=== PATIENT | female | born 1985 | race Caucasian/White ===

== ENCOUNTER 2016-10-01 20:28 | Emergency (ER) | payer OTHER ==
[~2016-10-01] VITALS: Ht 175.3 cm; Wt 99.8 kg
[~2016-10-01 20:28] MED LIST: CIPRO500 MG PO; IBUPROFEN 600600 M1 PO; IBUPROFEN 800800 M1 PO; LIORESAL 10 MG10 MG PO; NAPROSYN500 MG PO; NOHOMEMEDICATIONS
[2016-10-01] MEDS ORDERED: TESSALON PERLE100 MG PO (21:24)
[2016-10-01] MEDS ORDERED: VENTOLIN HFA 1818 GM INH (21:24)
[2016-10-01] MEDS ORDERED: PREDNISONE 20 M20 MG PO (21:24)
[2016-10-01 21:40] VITALS: BP 118/70
== END 2016-10-01 21:40 | disposition home or self-care (01) ==
LOC: ER 20:28
DX: S29.011A Strain of muscle and tendon of front wall of thorax, initial encounter (principal); J40 Bronchitis, not specified as acute or chronic; J02.9 Acute pharyngitis, unspecified; Z91.040 Latex allergy status; X58.XXXA Exposure to other specified factors, initial encounter; Y93.89 Activity, other specified; Y92.89 Other specified places as the place of occurrence of the external cause; Y99.8 Other external cause status